=== PATIENT | female | born 1980 | race Caucasian/White ===

== ENCOUNTER 2020-07-15 16:05 | Emergency (ER) | payer OTHER ==
[2020-07-15 18:34] LABS: HEMOGLOBIN 12.3 gm/dl (12.3-15.3); RED BLOOD COUNT 4.04 M/UL (4.00-5.10); WHITE BLOOD COUNT 8.6 K/UL (4.5-11.0)
[2020-07-15 18:52] LABS: BUN/CREATININE RATIO 6 (0-10)
[2020-07-15] MEDS ORDERED: MEDROL4 MG PO (19:45)
[2020-07-15] MEDS ORDERED: HYDROCODON-ACE1 EAC4 PO (19:45)
[2020-07-15] MEDS ORDERED: CYCLOBENZAPRINE10 MG PO (19:45)
== END 2020-07-15 20:17 | disposition home or self-care (01) ==
LOC: ER1 16:05
PROVIDERS: Preventive Medicine Occupational Medicine
DX: M48.061 Spinal stenosis, lumbar region without neurogenic claudication (principal); M51.26 Other intervertebral disc displacement, lumbar region; F17.210 Nicotine dependence, cigarettes, uncomplicated; Z95.1 Presence of aortocoronary bypass graft
CPT/HCPCS: 70450; 72128; 72131; 80053; 85025; 86140; 96374; 99284; J2930; J7030

== ENCOUNTER → 2020-07-18 | Outpatient (CLI) | payer OTHER ==
[~2020-07-18] MED LIST: CYCLOBENZAPRINE10 MG PO; HYDROCODON-ACE1 EAC4 PO; MEDROL4 MG PO
== END ==
LOC: EXRD 16:00
DX: E04.9 Nontoxic goiter, unspecified (principal); E78.5 Hyperlipidemia, unspecified; R13.10 Dysphagia, unspecified; F11.20 Opioid dependence, uncomplicated
CPT/HCPCS: 76536

== ENCOUNTER → 2020-11-02 | Outpatient (CLI) | payer OTHER | LOC: EXRD 13:00 | DX: E03.9 Hypothyroidism, unspecified (principal); E04.2 Nontoxic multinodular goiter; E04.9 Nontoxic goiter, unspecified | CPT/HCPCS: 76536 ==